=== PATIENT | male | born 1980 | race Caucasian/White ===

== ENCOUNTER 2021-12-11 16:44 | Emergency (ER) | payer BC, SELFPAY ==
[2021-12-11 16:53] VITALS: BP 146/77; PULSE 80; RESP 20; TEMP 36.7; O2SAT 99
--- NOTE | 2021-12-11 18:01 | ED.GENADULT ---
HPI - General Adult General Chief complaint: Unspecified Stated complaint: Diarrhea Source: patient Mode of arrival: ambulatory Limitations: no limitations History of Present Illness HPI narrative: Patient presents requesting a note to allow him to return to work tomorrow. He indicates Sunday morning experienced some diarrhea and therefore called off work. He now realizes that he would need note to allow him to return. He states his symptoms have resolved. He did not experience any nausea, vomiting, fever, chills, abdominal pain. He believes his symptoms were related to food ingestion. No recent sick contacts. No additional complaints or concerns. Related Data Home Medications Medication Instructions Recorded Confirmed No Home Medications 09/06/21 12/11/21 Allergies Allergy/AdvReac Type Severity Reaction Status Date / Time No Known Allergies Allergy Verified 12/11/21 17:01 Review of Systems Review of Systems: CONSTITUTIONAL: Denies fever, chills, or sweats. EYES: Denies visual changes, redness, or discharge. ENT: Denies rhinorrhea, congestion, sore throat, or otalgia. CARDIOVASCULAR: Denies chest pain, palpitations, or edema. RESPIRATORY: Denies cough or dyspnea. GASTROINTESTINAL: Reports diarrhea 2 days ago, now resolved. Denies abdominal pain, nausea, or vomiting GENITOURINARY: Denies dysuria or hematuria. SKIN: Denies rash or itching. MUSCULOSKELETAL: Denies back pain, joint pain, or myalgia. NEUROLOGIC: Denies headache, numbness, dizziness, or weakness. PSYCHIATRIC: Denies anxiety or depression. REPLACED BY [facility] Past Medical History Medical History (Updated 12/11/21 @ 19:00 by TULIO Medina, ) Overweight Surgical History Surgical History No pertinent past surgical history Family History Family History Mother Family history non-contributory Social History Social History (Updated 12/11/21 @ 19:01 by TULIO Medina, ) Smoking status: Unknown if ever smoked Tobacco type: cigarettes Alcohol intake: current Living arrangements: with family Additional occupation/education comments: Works at [employer] Gender identity (if verbalized by the patient): Male Spiritual care concerns: No Exam Narrative: GENERAL: Well-appearing, well-nourished, and in no acute distress. HEAD: Normocephalic, atraumatic. EYES: PERRLA and EOMI. ENT: Nares clear, no rhinorrhea or epistaxis. Mucous membranes moist. Oropharynx without tonsillar hypertrophy exudate or other lesions. Bilateral TMs pearly denise nonbulging NECK: Supple. No adenopathy or masses. No carotid bruits or JVD CHEST: Clear to auscultation. No respiratory distress. No wheezes rales or rhonchi HEART: Regular rate and rhythm. No murmur heard. Normal peripheral pulses. ABDOMEN: Soft, nontender, nondistended, normal active bowel sounds. EXTREMITIES: Normal range of motion. No edema. SKIN: Warm, dry, no rash. NEURO: No focal deficits. Alert and oriented x3. PSYCH: Normal mood and affect. Course Course Emergency Course: This is a 41-year-old male who presented requesting a note to allow him to work after experiencing diarrhea 2 days ago. Symptoms have resolved. He does not appear acutely ill. Follow bland diet. Increase hydration. Follow up outpatient for further evaluation and treatment and go to ER for worsening symptoms. Pt in agreement with plan of care. Level of Care: Express Care Visit Vital Signs Vital signs: Vital Signs Temperature 36.7 C 12/11/21 16:53 Pulse Rate 80 12/11/21 16:53 Respiratory Rate 20 12/11/21 16:53 Blood Pressure 146/77 H 12/11/21 16:53 Pulse Oximetry 99 12/11/21 16:53 Oxygen Delivery Room Air 12/11/21 16:53 Temperature 36.7 C 12/11/21 16:53 Pulse Rate 80 12/11/21 16:53 Respiratory Rate 20 12/11/21 16:53 Blood Pressure 146/77 H
== END 2021-12-11 18:08 | disposition home or self-care (01) ==
PROVIDERS: Emergency Provider Nurse Practitioner
DX: R19.7 Diarrhea, unspecified (principal)
CPT/HCPCS: 99211; G0463